=== PATIENT | female | born 1995 | race Hispanic/Latino ===

== ENCOUNTER 2017-10-05 15:33 | Inpatient (IN) | payer SELFPAY ==
[2017-10-05] MEDS ORDERED: ACT CHARCOAL/SORB 50 GM/240ML ONE (15:55)
[2017-10-05] MEDS ORDERED: NA CHLORIDE 0.9% 1,000 ML ONE ×3 (15:55→17:07)
[2017-10-05 16:17] LABS: Absolute Lymphocytes (CBC) 3.1 K/uL (0.7-4.9); Absolute Monocytes 0.6 K/uL (0.1-1.3); Absolute Neutrophil 4.4 K/uL (1.8-8.0); Basophils % 0.4 % (0-1.3); Eosinophils % 0.9 % (0-4.4); Hematocrit 44.2 % (36.0-45.0); Lymphocytes % 37.5 % (15.3-44.8); MCH 30.1 pg (27.0-35.0); MCV 87.9 fL (80-100); Monocytes % 6.8 % (3.3-12.3); RBC Red Blood Cell Count 5.03 M/uL (3.86-4.86)
[2017-10-05] MEDS ORDERED: LORazepam 2 MG/ML VIAL ONE ×2 (16:19→18:24)
[2017-10-05] MEDS ORDERED: RSI MEDICATION KIT IV ONE (16:21)
[2017-10-05] MEDS ORDERED: PROPOFOL 1,000 MG/100 ML VIAL IV ONE (16:23)
[2017-10-05 16:24] LABS: Protime INR 1.17
[2017-10-05] MEDS ORDERED: ACTIVATED CHARCOAL 25 GM/120 ML TUBE ONE (16:37)
[2017-10-05] MEDS ORDERED: D5 0.45 NS 0 ML IV ONE (16:45)
[2017-10-05] MEDS ORDERED: D5 0.9 NS 1,000 ML IV ONE (16:46)
[2017-10-05] MEDS ORDERED: Magnesium Sulfate 2gm IVPB 2 G/50 ML BAG IV ONE (16:50)
--- NOTE | 2017-10-05 16:54 | RAD REPORT ---
EXAM DESCRIPTION: RAD - Chest Single View - 10/05/2017 4:47 pm CLINICAL HISTORY: Tube placement Chest pain. COMPARISON: No comparisons FINDINGS: Portable technique limits examination quality. Tip of the ET tube is in the right mainstem bronchus. Repositioning is advised. Complete atelectasis of the left lung is seen. Cardiac size is not well assessed. Enteric tube descends into stomach. IMPRESSION: Right mainstem intubation.
[2017-10-05 17:06] LABS: ALT/SGPT 18 U/L (12-78); AST/SGOT 12 U/L (15-37); Albumin 4.6 g/dL (3.4-5.0); Alkaline Phosphatase 70 U/L (45-117); BUN Blood Urea Nitrogen 10 mg/dL (7-18); Bicarbonate 27 mmol/L (21-32); Bilirubin Direct 0.2 mg/dL (0-0.2); Bilirubin Total 0.4 mg/dL (0.2-1.0); Glucose Level 79 mg/dL (74-106); Potassium 3.7 mmol/L (3.5-5.1); Protein, Total 8.6 g/dL (6.4-8.2); Sodium Level 141 mmol/L (136-145)
[2017-10-05 17:10] LABS: Alcohol Serum/Plasma < 3 mg/dL (<3)
[2017-10-05 17:20] LABS: Blood Gas Oxyhemoglobin 94.9 % (94-97); Blood O2 Saturation 95.9 % (92-98.5)
[2017-10-05] MEDS ORDERED: ONDANSETRON 4 MG/2 ML VIAL IV PRN (17:42)
[2017-10-05] MEDS ORDERED: SODIUM CHLORIDE 0.9% 10ML INJ IV PRN (17:42)
[2017-10-05] MEDS ORDERED: ACETAMINOPHEN 650MG/RECT SUPP PR PRN (17:42)
[2017-10-05] MEDS ORDERED: LORazepam 2 MG/ML VIAL IV PRN (17:42)
--- NOTE | 2017-10-05 17:52 | RAD REPORT ---
EXAM DESCRIPTION: RAD - Chest Single View - 10/05/2017 4:59 pm CLINICAL HISTORY: INTUBATION TUBE CHANGE Chest pain. COMPARISON: Chest Single View dated 10/05/2017 FINDINGS: Portable technique limits examination quality. Tip of the endotracheal tube is at the level of the carlin. Ill-defined opacities in the left lung ba se may be residual atelectasis or infiltrate/ pneumonia. Enteric tube is in the stomach.
[2017-10-05] MEDS ORDERED: D5.45NS W/KCL 20MEQ 1,000 ML IV SCH (18:00)
--- NOTE | 2017-10-05 18:05 | EDPHYS ---
Physician Documentation [facility] Name: Katie Majano Age: 22 yrs Sex: Female : 1995 Arrival Date: 10/05/2017 Time: 15:34 Bed 3 Private MD: ED Physician Trae Richard HPI: 10/05 15:52 This 22 yrs old Female presents to ER via Unassigned with complaints of cp Overdose. 15:52 The patient presents to the emergency department after a known overdose, that was cp intentional. 15:52 Context: Method: the patient has a confirmed or suspected ingestion, benadryl, Time: 1 cp hour(s) ago, Extent: severe ingestion, the strength of the pills/capsules is 25 mg(s), 6 full bottles with estimated 60 in each bottle. Historical: - Allergies: 15:53 No Known Allergies; sv - Home Meds: 15:53 glycopyrrolate oral oral [Active]; sv - PMHx: 15:53 hyperhydrosis; psychosis; sv 18:59 Bipolar disorder; suicide attempt; aa1 - PSHx: 15:53 nose; ectopic ; sv - Immunization history:: Adult Immunizations up to date. - Social history:: Smoking status: Patient/guardian denies using tobacco. - Ebola Screening: : No symptoms or risks identified at this time. ROS: 15:55 Constitutional: Negative for body aches, chills, fever, poor PO intake. cp 15:55 Eyes: Negative for injury, pain, redness, and discharge. cp 15:55 Cardiovascular: Negative for chest pain. 15:55 Respiratory: Negative for cough, shortness of breath, wheezing. 15:55 Abdomen/GI: Negative for abdominal pain, nausea, vomiting, and diarrhea. 15:55 Neuro: Negative for altered mental status, headache, loss of consciousness, syncope, near syncope, weakness. 15:55 Psych: Positive for depression, suicide gesture. Exam: 15:59 Constitutional: The patient appears in no acute distress, alert, awake, non-toxic, well cp developed, well nourished. 15:59 Head/Face: Normocephalic, atraumatic. cp 15:59 Eyes: Periorbital structures: appear normal, Pupils: equal, round, and reactive to light and accomodation, Extraocular movements: intact throughout, Conjunctiva: normal, Sclera: no appreciated abnormality, Lids and lashes: appear normal, bilaterally. 15:59 ENT: External ear(s): are unremarkable, Ear canal(s): are normal, clear, TM's: bulging, is not appreciated, bilaterally, dullness, bilaterally, erythema, is not appreciated, bilaterally, Nose: is normal, Mouth: Lips: moist, Oral mucosa: moist, Posterior pharynx: is normal, airway is patent, no erythema, no exudate. 15:59 Neck: ROM/movement: is normal, is supple, without pain, no range of motions limitations, no nuchal rigidity. 15:59 Chest/axilla: Inspection: normal, Palpation: is normal, no crepitus, no tenderness. 15:59 Cardiovascular: Rate: tachycardic, Rhythm: regular, Pulses: Pulses are 2+ in right radial artery and left radial artery. Edema: is not appreciated, JVD: is not appreciated. 15:59 Respiratory: the patient does not display signs of respiratory distress, Respirations: labored breathing, is not present, accessory muscle usage, is absent, intercostal retractions, are absent, shallow respirations, are not present, Breath sounds: are clear throughout, no decreased breath sounds, no stridor, no wheezing. 15:59 Abdomen/GI: Inspection: abdomen appears normal, Palpation: abdomen is soft and non-tender, in all quadrants, rebound tenderness, is not appreciated, voluntary guarding, is not appreciated, involuntary guarding, is not appreciated. 15:59 Back: pain, is absent, ROM is normal. 15:59 Skin: Appearance: Color: pale, Temperature: warm, dry, no rash present. 15:59 Neuro: Orientation: to person, place \T\ time. Mentation: lucid, able to follow commands, Cerebellar function: is grossly normal, Motor: moves all fours, strength is normal, Sensation: no obvious gross deficits. 15:59 Psych: Behavior/mood is depressed, Affect is flat. Vital Signs: 15:35 BP 121 / 86; Pulse 104; Resp 18; Temp 99; Pulse Ox 99% ; Height 5 ft. 4 in. (162.56 sv cm); Pain 2/10; 16:08 BP 139 / 93; Pulse 159; Resp 22; Pulse Ox 100% on R/A; Weight 47.63 kg; ss 16:10 BP 139 / 93; Pulse 158; Resp 28; Pulse Ox 78% on R/A; ch 16:28 BP 122 / 84; Pulse 156; Resp 18 A; Pulse Ox 98% on ETT ambu; ch 16:35 BP 112 / 82; Pulse 138; ch 16:40 BP 112 / 81; Pulse 205; ch 16:48 BP 125 / 87; Pulse 136; Resp 14 A; Pulse Ox 98% on ETT vent; ch 17:00 BP 118 / 72; Pulse 130; Resp 14; Pulse Ox 98% on ETT vent; ch 17:15 BP 101 / 65; Pulse 117; Resp 14; Pulse Ox 100% ; ch 17:33 BP 122 / 87; Pulse 128; Resp 16; Temp 97.4; Pulse Ox 100% on R/A; Pain 0/10; ch 18:01 BP 110 / 79; Pulse 118; Resp 15; Temp 97.6; Pulse Ox 100% on ETT vent; Pain 0/10; ch 18:34 BP 98 / 62; Pulse 115; Resp 16; Pulse Ox 100% on ETT vent; aa1 18:52 BP 97 / 65; Pulse 108; Resp 16; Temp 97.1(A); Pulse Ox 100% on ETT vent; aa1 19:11 BP 99 / 67; Pulse 102; Resp 16; Pulse Ox 100% on ETT vent; aa1 19:25 BP 100 / 66; Pulse 100; Resp 14; Pulse Ox 100% on ETT vent; aa1 19:45 BP 105 / 77; Pulse 101; Resp 16; Pulse Ox 100% on ETT vent; aa1 16:08 Body Mass Index 18.02 (47.63 kg, 162.56 cm) ss 16:10 pt seizing. then toi page uses BVM to raise O\T\ to 98% ch 16:40 toi page at bedside, new orders obtained. ch 17:15 pt complexes are very wide V tach. medicated per orders. Procedures: 16:26 Intubation: Ventilated with 100% NRB prior to procedure. O2 saturation prior to cp procedure was 100 %. Intubated orally using # 3 Fito blade with 7.5 mm ETT. was successful on first attempt. Ventilated with Ambu bag. Tube secured with ETT stephens at right side of mouth measured 23 cm at teeth. Placement verified by CO2 detector with (+) color change, auscultating bilateral breath sounds, O2 saturation after procedure was 100 %. Patient tolerated well. MDM: 15:56 Patient medically screened. cp 17:05 Physician consultation: DR Harvey, ruling machine operator with poison control, recommends cp continued monitoring for seizures with seizure control using Versed, and/or ativan, and/or keppra. If seizures continue with these medications, use antilirium titrated for seizure control. 18:48 Data reviewed: vital signs, nurses notes, lab test result(s), EKG, radiologic studies, cp plain films. Test interpretation: by ED physician or midlevel provider: ECG, plain radiologic studies. 10/05 15:51 Order name: Acetaminophen; Complete Time: 17:24 cp 10/05 15:51 Order name: Basic Metabolic Panel; Complete Time: 17:24 cp 10/05 17:24 Interpretation: Normal except: GFR 77. cp 10/05 15:51 Order name: CBC with Diff; Complete Time: 16:32 cp 10/05 16:32 Interpretation: Normal except: RBC 5.03; HGB 15.1. cp 10/05 15:51 Order name: ETOH Level; Complete Time: 17:24 cp 10/05 15:51 Order name: Hepatic Function; Complete Time: 17:24 cp 10/05 15:51 Order name: PT-INR; Complete Time: 16:32 cp 10/05 15:51 Order name: Ptt, Activated; Complete Time: 16:32 cp 10/05 15:51 Order name: Salicylate; Complete Time: 16:54 cp 10/05 16:54 Interpretation: Within normal limits. cp 10/05 15:51 Order name: Urine Drug Screen; Complete Time: 19:21 cp 10/05 16:31 Order name: Troponin I; Complete Time: 16:54 cp 10/05 16:54 Interpretation: Reviewed. cp 10/05 16:34 Order name: Troponin (emerg Dept Use Only) dm5 10/05 16:43 Order name: ABG; Complete Time: 17:30 mb4 10/05 17:48 Order name: CBC with Automated Diff EDMS 10/05 17:48 Order name: CBC with Automated Diff EDMS 10/05 16:23 Order name: Chest Single View XRAY; Complete Time: 16:56 la1 10/05 16:56 Order name: Chest Single View; Complete Time: 19:21 EDNJ 10/05 17:47 Order name: Chest Single View; Complete Time: 19:21 EDNJ 10/05 17:48 Order name: Comprehensive Metabolic Panel [facility] 10/05 17:48 Order name: Comprehensive Metabolic Panel [facility] 10/05 17:48 Order name: ABG Arterial Blood Gas [facility] 10/05 18:36 Order name: Urine Dipstick--Ancillary (enter results); Complete Time: 19:21 mb4 10/05 18:36 Order name: Urine --Ancillary (enter results); Complete Time: 19:20 mb4 10/05 15:51 Order name: Urine Test (obtain specimen); Complete Time: 18:32 cp 10/05 15:51 Order name: EKG; Complete Time: 15:52 cp 10/05 15:51 Order name: EKG - Nurse/Tech; Complete Time: 16:07 cp 10/05 15:51 Order name: IV Saline Lock; Complete Time: 16:07 cp 10/05 15:51 Order name: Labs collected and sent; Complete Time: 16:07 cp 10/05 15:51 Order name: Urine Dipstick-Ancillary (obtain specimen); Complete Time: 18:32 cp 10/05 16:08 Order name: IV; Complete Time: 16:09 cp 10/05 16:08 Order name: IV; Complete Time: 16:08 cp 10/05 16:08 Order name: Holloway; Complete Time: 17:41 cp 10/05 17:31 Order name: EKG Electrocardiogram [facility] 10/05 17:31 Order name: EKG Electrocardiogram [facility] 10/05 17:48 Order name: CONS Physician Consult [facility] 10/05 17:48 Order name: NPO [facility] Administered Medications: Discontinued: NS 0.9% 500 ml IV at bolus once 16:04 Drug: NS 0.9% 1000 ml Route: IV; Rate: 1 bolus; Site: right forearm; ss 16:09 Drug: Activated Charcoal Suspension (50 g/240 mL) 1 g/kg Route: PO; ss 16:09 Drug: NS 0.9% 500 ml Route: IV; Rate: bolus; Site: left antecubital; ss 16:12 Drug: Ativan 2 mg Route: IVP; Site: left antecubital; ch 18:32 Follow up: Response: No adverse reaction ch 16:18 Drug: Etomidate 20 mg Route: IVP; Site: left antecubital; ch 18:31 Follow up: Response: No adverse reaction; Marked relief of symptoms ch 16:19 Drug: Succinylcholine 120 mg Route: IVP; Site: left antecubital; ch 18:31 Follow up: Response: No adverse reaction ch 16:33 Drug: Charcoal Suspension 100 grams Route: PO; ch 18:46 Follow up: Response: No adverse reaction; No change in condition aa1 16:36 Drug: Sodium Bicarbonate 1 amp Route: IVP; Site: left antecubital; ch 16:40 Drug: Sodium Bicarbonate 1 amp Route: IVP; Site: right forearm; ch 18:31 Follow up: Response: No adverse reaction ch 16:43 Drug: D5 -1/4 NS 1000 ml Route: IV; Rate: 70 ml/hr; Site: right wrist; ch 18:47 Follow up: IV Status: Infusion continued upon admission aa1 16:47 Drug: Magnesium Sulfate 2 grams Route: IVPB; Site: right forearm; ch 18:46 Follow up: IV Status: Completed infusion aa1 17:00 Drug: NS 0.9% 1000 ml Route: IV; Rate: 1 bolus; Site: left antecubital; ch 17:25 Follow up: IV Status: Order to discontinue infusion; IV Intake: 600ml ch 17:14 Drug: Sodium Bicarbonate 1 amp Route: IVP; Site: right forearm; ch 18:31 Follow up: Response: No adverse reaction ch 17:17 Drug: Sodium Bicarbonate 1 amp Route: IVP; Site: right forearm; ch 18:32 Follow up: Response: No adverse reaction ch 18:21 Drug: Ativan 2 mg Route: IVP; Site: left antecubital; ch 18:33 Follow up: Response: No adverse reaction; Marked relief of symptoms ch 18:43 Drug: Keppra 1000 mg Route: IV; Rate: calculated rate; Site: left antecubital; aa1 19:00 Follow up: IV Status: Completed infusion aa1 Point of Care Testing: Blood Glucose: 16:41 Blood Glucose: 136 mg/dL; em1 Ranges: Critical Glucose Levels:Adult <50 mg/dl or >400 mg/dl <40 mg/dl or >180 mg/dl Disposition: 10/06 08:33 Co-signature as Attending Physician, Trae Richard MD I agree with the assessment and wa plan of care. Disposition: 10/05/17 18:04 Hospitalization ordered by Clinton Tatum for Inpatient Admission. Preliminary diagnosis are Poisoning by other drugs, medicaments and biological substances, intentional self-harm, Diphenhydramine overdose. - Bed requested for Intensive Care Unit. - Status is Inpatient Admission. aa1 - Condition is Stable. - Problem is new. - Symptoms have improved. UTI on Admission? No Critical care time excluding procedures: 10/05 18:49 Critical care time: Bedside Care: 60 minutes, Consultation: 30 minutes, Family cp Intervention: 20 minutes. Total time: 110 minutes Signatures: Dispatcher [employer] EDGeorgie Razo, RN RN Winifred Leija RN Sherley Pena RN RN aa1 Liliya Gillis RN RN ss Toi Kumar, PA PA Trae Mccormack MD MD wa Baxter, Mackenzie mb4 Corrections: (The following items were deleted from the chart) 18:51 18:04 Hospitalization Ordered by Clinton Tatum MD for Inpatient Admission. Preliminary mb4 diagnosis is Poisoning by other drugs, medicaments and biological substances, intentional self-harm; Diphenhydramine overdose. Bed requested for Intensive Care Unit. Status is Inpatient Admission. Condition is Stable. Problem is new. Symptoms have improved. UTI on Admission? No. cp 20:01 18:51 10/05/2017 18:04 Hospitalization Ordered by Clinton Tatum MD for Inpatient aa1 Admission. Preliminary diagnosis is Poisoning by other drugs, medicaments and biological substances, intentional self-harm; Diphenhydramine overdose. Bed requested for Intensive Care Unit. Status is Inpatient Admission. Condition is Stable. Problem is new. Symptoms have improved. UTI on Admission? No. mb4
--- NOTE | 2017-10-05 18:05 | ER ---
Nurse's Notes [facility] Name: Katie Majano Age: 22 yrs Sex: Female : 1995 Arrival Date: 10/05/2017 Time: 15:34 Bed 3 Private MD: Diagnosis: Poisoning by other drugs, medicaments and biological substances, intentional self-harm;Diphenhydramine overdose Presentation: 10/05 15:35 Presenting complaint: Patient states: taking 6 full bottles of Benadryl, quantity in sv each is 60, about 40 mins ago. Pt told her grandmother and she brought her up here. Pt stated "I wanted to sleep. I felt tired." Pt denies depression or previous suicidal attempt. Pt denies being abused. Transition of care: patient was not received from another setting of care. Onset of symptoms was October 05, 2017 at 15:00. Risk Assessment: Do you want to hurt yourself or someone else? Patient reports no desire to harm self or others. Care prior to arrival: None. 15:35 Method Of Arrival: Wheelchair sv 15:35 Acuity: YADIRA 2 sv 17:15 Acuity: YADIRA 1 ph Historical: - Allergies: 15:53 No Known Allergies; sv - Home Meds: 15:53 glycopyrrolate oral oral [Active]; sv - PMHx: 15:53 hyperhydrosis; psychosis; sv 18:59 Bipolar disorder; suicide attempt; aa1 - PSHx: 15:53 nose; ectopic ; sv - Immunization history:: Adult Immunizations up to date. - Social history:: Smoking status: Patient/guardian denies using tobacco. - Ebola Screening: : No symptoms or risks identified at this time. Screenin:13 Abuse screen: Denies threats or abuse. Nutritional screening: No deficits noted. Tuberculosis screening: No symptoms or risk factors identified. Fall Risk None identified. Assessment: 15:47 Reassessment: spoke with poison control rep who recommends to obtain full tox work up, ss then repeat labs after 4 hours of ingestion , continuous cardiac monitoring, initiate seizure precautions, administer 1mg/kg of activated charcoal now. Watch for hallucinations and give supportive care as needed. Case # [id number]. 16:10 Reassessment: pt loses conscousness, begins seizing. Toi page at bedside. 16:10 Pain: Unable to use pain scale. Patient is disoriented. 16:13 Reassessment: pt Stoped Seizing, prepared for intubation.pt; O2 is 78%. Pt bein bagged. 16:47 Reassessment: cardiac rhythm noted to have changed, Dr Richard notified and at bedside. ph 16:52 Reassessment: X ray shows pt L lung collapsed. tube pulled back to 21 at the teeth at 1652, repeat x ray ordered. 16:57 Reassessment: Reassessment: pt has eduardo breath sounds, equally. slightly diminshed on LLL, but breath sounds eduardo. 17:15 Reassessment: pthas wide com-plex V Tach. Toi page at bedside, medicated per orders. 17:33 Reassessment: Patient appears in no apparent distress at this time. pt still has no ch Urine output, Joes Manuel performs US on bladder, states to change andersen to a larger andersen. andersen replaced, pt has 1400 ML out. NS bolus stopped per orders, pt had 600 mL of bolus. 17:37 Reassessment: repeat x ray performed, Toi page states to move ET tube out one CM.ET ch tube is at 22 at the teeth when RT checks, moved back to 21 at teeth. 17:45 Reassessment: pt stillhaving wide complex tachycardia. physician and toi page ch notified, no new orders. 17:54 Reassessment:. 17:55 Reassessment:. 17:56 Reassessment: at bedside to assess pt. 18:00 Reassessment: I am at bedside, one on one with pt from 1550 till now,and remain at bedside monitoring. 18:12 Reassessment: family at bedside, states they want to put the pt service animal on top ch of her .I tell them no, due to pt status. 18:33 Reassessment: Patient appears in no apparent distress at this time. Patient and/or family updated on plan of care and expected duration. Pain level reassessed. Toi kumar speaks eith family about pt status. family states pt has prior suicide attemps, and hx of bipolar. 18:35 Neuro: Level of Consciousness is unresponsive. Cardiovascular: Heart tones S1 S2 aa1 present. Respiratory: Airway via oral intubation Respiratory effort is assisted with ventilator Respiratory pattern is symmetrical. GI: Oral gastric tube in place, to suction. : Andersen in place to gravity drainage Urine is clear. Derm: Skin is intact, is healthy with good turgor, Skin is pink, warm \\T\\ dry. Musculoskeletal: Capillary refill < 3 seconds. 18:52 Reassessment: Patient appears in no apparent distress at this time. No changes from aa1 previously documented assessment. Patient and/or family updated on plan of care and expected duration. Pain level reassessed. Mother at bedside with pt. Bed assignment received and pt to be admitted to ICU after shift change. 19:15 Reassessment: Patient appears in no apparent distress at this time. No changes from aa1 previously documented assessment. Patient and/or family updated on plan of care and expected duration. Pain level reassessed. ICU states they are ready to receive pt; awaiting RT for transport upstairs. Vital Signs: 15:35 BP 121 / 86; Pulse 104; Resp 18; Temp 99; Pulse Ox 99% ; Height 5 ft. 4 in. (162.56 sv cm); Pain 2/10; 16:08 BP 139 / 93; Pulse 159; Resp 22; Pulse Ox 100% on R/A; Weight 47.63 kg; ss 16:10 BP 139 / 93; Pulse 158; Resp 28; Pulse Ox 78% on R/A; ch 16:28 BP 122 / 84; Pulse 156; Resp 18 A; Pulse Ox 98% on ETT ambu; ch 16:35 BP 112 / 82; Pulse 138; ch 16:40 BP 112 / 81; Pulse 205; ch 16:48 BP 125 / 87; Pulse 136; Resp 14 A; Pulse Ox 98% on ETT vent; ch 17:00 BP 118 / 72; Pulse 130; Resp 14; Pulse Ox 98% on ETT vent; ch 17:15 BP 101 / 65; Pulse 117; Resp 14; Pulse Ox 100% ; ch 17:33 BP 122 / 87; Pulse 128; Resp 16; Temp 97.4; Pulse Ox 100% on R/A; Pain 0/10; ch 18:01 BP 110 / 79; Pulse 118; Resp 15; Temp 97.6; Pulse Ox 100% on ETT vent; Pain 0/10; ch 18:34 BP 98 / 62; Pulse 115; Resp 16; Pulse Ox 100% on ETT vent; aa1 18:52 BP 97 / 65; Pulse 108; Resp 16; Temp 97.1(A); Pulse Ox 100% on ETT vent; aa1 19:11 BP 99 / 67; Pulse 102; Resp 16; Pulse Ox 100% on ETT vent; aa1 19:25 BP 100 / 66; Pulse 100; Resp 14; Pulse Ox 100% on ETT vent; aa1 19:45 BP 105 / 77; Pulse 101; Resp 16; Pulse Ox 100% on ETT vent; aa1 16:08 Body Mass Index 18.02 (47.63 kg, 162.56 cm) ss 16:10 pt seizing. then toi kumar uses BVM to raise O\\T\\ to 98% ch 16:40 toi kumar at bedside, new orders obtained. ch 17:15 pt complexes are very wide V tach. medicated per orders. ch Vitals: 16:35 Cardiac Rhythm Assessment V tach. ch ED Course: 15:34 Patient arrived in ED. as 15:35 Arm band placed on right wrist. Patient placed in an exam room, on a stretcher. sv 15:50 Toi Kumar PA is PHCP. cp 15:50 Trae Richard MD is Attending Physician. cp 15:50 Patient has correct armband on for positive identification. Placed in gown. Bed in low ch position. Call light in reach. Side rails up X2. Adult w/ patient. court monitor on. Pulse ox on. NIBP on. Warm blanket given. 15:50 Inserted saline lock: 20 gauge in left antecubital area, using aseptic technique. ch 15:52 Triage completed. sv 16:07 Inserted saline lock: 20 gauge in right forearm, using aseptic technique. ss 16:10 EKG done, by entry tech. reviewed by Toi LOVE. 3 16:20 Assisted provider with intubation using 7.5 mm ETT via oral route. ET tube secured at ch 23cm at the teeth. Set up intubation tray. Intubated by Trae Richard MD Placement verified by CO2 detector w/ + color change, Patient tolerated well. 16:23 NGT: inserted other Orally verified placement of air over stomach, verified return of ch gastric contents, to intermittent suction. flushed 600 Ml waterper orders. pt placed on Low Intermittant Suction Patient tolerated well. 16:38 EKG done, by entry tech. reviewed by Trae Richard MD. sm3 16:44 Chest Single View XRAY In Process Unspecified. EDMS 16:44 X-ray completed. Portable x-ray completed in exam room. Patient tolerated procedure mh1 well. 16:45 Andersen cath inserted, using sterile technique, 18 Fr., by mo, balloon inflated, to ph gravity drainage, returned no urine returned. 16:54 Inserted saline lock: 20 gauge in right antecubital area, using aseptic technique. ss Blood collected. 16:58 Chest Single View In Process Unspecified. EDMS 17:02 Georgie Mittal, RN is Primary Nurse. ch 17:17 EKG done, by entry tech. reviewed by Trae Richard MD. sm3 17:52 Chest Single View In Process Unspecified. EDMS 18:02 Clinton Tatum MD is Hospitalizing Provider. cp 18:35 Report given to Sherley Hopper ch 19:45 Patient admitted, IV remains in place. aa1 Administered Medications: Discontinued: NS 0.9% 500 ml IV at bolus once 16:04 Drug: NS 0.9% 1000 ml Route: IV; Rate: 1 bolus; Site: right forearm; ss 16:09 Drug: Activated Charcoal Suspension (50 g/240 mL) 1 g/kg Route: PO; ss 16:09 Drug: NS 0.9% 500 ml Route: IV; Rate: bolus; Site: left antecubital; ss 16:12 Drug: Ativan 2 mg Route: IVP; Site: left antecubital; ch 18:32 Follow up: Response: No adverse reaction ch 16:18 Drug: Etomidate 20 mg Route: IVP; Site: left antecubital; ch 18:31 Follow up: Response: No adverse reaction; Marked relief of symptoms ch 16:19 Drug: Succinylcholine 120 mg Route: IVP; Site: left antecubital; ch 18:31 Follow up: Response: No adverse reaction ch 16:33 Drug: Charcoal Suspension 100 grams Route: PO; ch 18:46 Follow up: Response: No adverse reaction; No change in condition aa1 16:36 Drug: Sodium Bicarbonate 1 amp Route: IVP; Site: left antecubital; ch 16:40 Drug: Sodium Bicarbonate 1 amp Route: IVP; Site: right forearm; ch 18:31 Follow up: Response: No adverse reaction ch 16:43 Drug: D5 -1/4 NS 1000 ml Route: IV; Rate: 70 ml/hr; Site: right wrist; ch 18:47 Follow up: IV Status: Infusion continued upon admission aa1 16:47 Drug: Magnesium Sulfate 2 grams Route: IVPB; Site: right forearm; ch 18:46 Follow up: IV Status: Completed infusion aa1 17:00 Drug: NS 0.9% 1000 ml Route: IV; Rate: 1 bolus; Site: left antecubital; ch 17:25 Follow up: IV Status: Order to discontinue infusion; IV Intake: 600ml ch 17:14 Drug: Sodium Bicarbonate 1 amp Route: IVP; Site: right forearm; ch 18:31 Follow up: Response: No adverse reaction ch 17:17 Drug: Sodium Bicarbonate 1 amp Route: IVP; Site: right forearm; ch 18:32 Follow up: Response: No adverse reaction ch 18:21 Drug: Ativan 2 mg Route: IVP; Site: left antecubital; ch 18:33 Follow up: Response: No adverse reaction; Marked relief of symptoms ch 18:43 Drug: Keppra 1000 mg Route: IV; Rate: calculated rate; Site: left antecubital; aa1 19:00 Follow up: IV Status: Completed infusion aa1 Point of Care Testing: Blood Glucose: 16:41 Blood Glucose: 136 mg/dL; em1 Ranges: Intake: 17:25 IV: 600ml; Total: 600ml. ch Outcome: 18:04 Decision to Hospitalize by Provider. cp 19:45 Admitted to ICU accompanied by nurse, accompanied by tech, family with patient, via aa1 stretcher, room 3, with oxygen, on monitor, with chart, Other bedside report given to BARRY Colón 19:45 Condition: stable 19:45 Discharge instructions given to family, Instructed on the need for admit, Demonstrated understanding of instructions. 19:45 Patient left the ED. aa1 Signatures: Dispatcher [employer] EDGeorgie Razo RN RN Winifred Leija RN RN sv Kern, Alissa, RN RN aa1 Lori Longo [facility] Brianne Zendejas Eric em1 Liliya Gillis RN RN Latia Medina RN RN ph Toi Kumar PA PA cp Montes, Shakira sm3 Corrections: (The following items were deleted from the chart) 18:07 16:41 BP 125 / 87; Pulse 136bpm; Resp 14bpm; Assisted; Pulse Ox 98% ET / Ventilator; em1ch 18:35 17:10 Reassessment: [facility] 18:55 18:52 Pulse 108bpm; Resp 16bpm; Pulse Ox 100% ET / Ventilator; Temp 97.1F Axillary; aa1 aa1 20:03 20:01 Patient left the ED. aa1 aa1
--- NOTE | 2017-10-05 18:14 | RAD REPORT ---
EXAM DESCRIPTION: RAD - Chest Single View - 10/05/2017 5:51 pm CLINICAL HISTORY: TUBE ADJUSTMENT Chest pain. COMPARISON: Chest Single View dated 10/05/2017; Chest Single View dated 10/05/2017 FINDINGS: Portable technique limits examination quality. The ET tube tip is about 1-2 cm above the carlin. Left basilar lung opacities are again noted, unchan ged. Enteric tube is in in the left upper quadrant, presumably within the stomach.
[2017-10-05] MEDS ORDERED: levETIRAcetam 1,000 MG in NA CHLORIDE 0.9% 100 ML IV ONE (18:30)
[2017-10-05] MEDS ORDERED: SUCCINYLCHOLINE 20 MG/ML (10 ML) IV ONE (18:46)
[2017-10-05] MEDS ORDERED: ETOMIDATE 20 MG/10 ML VIAL IV ONE (18:46)
[2017-10-05 18:47] LABS: Barbiturates NEGATIVE (NEGATIVE); Benzodiazepines NEGATIVE (NEGATIVE); Cocaine NEGATIVE (NEGATIVE); METHAMPHETAM NEGATIVE (NEGATIVE); Methadone NEGATIVE (NEGATIVE); Opiates NEGATIVE (NEGATIVE); Phencyclidine NEGATIVE (NEGATIVE); THC Cannibis NEGATIVE (NEGATIVE)
[2017-10-05 19:03] LABS: Urine Blood TRACE (NEG); Urine Glucose NEGATIVE (NEG); Urine Protein NEGATIVE (NEG); Urine pH 8.5 (5.0-7.0)
[2017-10-05 20:10] LABS: Arterial Blood Carboxyhemoglob 0.8 % (0-1.5); Blood Gas Oxyhemoglobin 98.2 % (94-97); Blood O2 Saturation 99.8 % (92-98.5)
[2017-10-05] MEDS: D5W 1,000 ML with NA BICARB 8.4% 100 MEQ IV SCH ×2 (20:23)
[2017-10-05] MEDS: ENOXAPARIN 40 MG/0.4 ML SQ SCH (21:34)
[2017-10-05] MEDS: PANTOPRAZOLE 40 MG INJ IVP SCH (21:34)
[2017-10-05] MEDS: PROPOFOL 1,000 MG/100 ML VIAL IV PRN (22:29)
--- NOTE | 2017-10-06 02:54 | HP ---
Date of Admission: 10/05/2017 Chief Complaint: Benadryl overdose. History Of Present Illness: The patient is a 22-year-old female who comes in with drowsiness, agitat ion, and hallucinations. The patient ingested approximately 360 pills of Benadryl 25 mg each. The p atbenito told the nurse that she was just trying to go to sleep; however, the story from the grandmothe r is that her has recently lost his job and has had some recent social stressors. The patien ryan was brought into the ER for further evaluation. Upon arrival, she was drowsy, somnolent, had a wit ness seizure, became hypoxic, was intubated. So far, the patient has received sodium bicarbonate alice us x2, activated charcoal, Ativan 2 mg, and was sedated with propofol and also received etomidate dur ing the intubation. The patient has received 3 L of normal saline, 2 g of magnesium as well as potas sium. The patient's workup showed normal electrolytes. Poison control was contacted and recommended to monitor the patient with cardiac telemetry and watch for seizures. The patient's ABG did show ac idosis, pH of 7.2, pCO2 of 50. When seen in the ER, the patient was intubated, sedated, nonresponsiv e. Past Medical History: None. Past Surgical History: Had a ruptured ectopic in 2012. Allergies: NO KNOWN DRUG ALLERGIES. Medications: List reviewed. Review of Systems: Unable to obtain due to the patient's medical condition. Family History: Unknown. Social History: Unable to obtain due to the patient's medical condition. Physical Examination: Vital Signs: Blood pressure 121/86, pulse 104, respirations 18, temperature 99, O2 99% on ET tube. General: Intubated, sedated, nonresponsive. HEENT: Normocephalic, atraumatic. PERRLA. ET tube in place. Neck: Supple. No JVD. Trachea midline. CV: S1, S2. Sinus tachycardia. No murmurs. Peripheral pulses present. Respiratory: Mechanical breath sounds. No wheezing or stridor. Gastrointestinal: Abdomen is soft, nontender, nondistended. Positive bowel sounds. Hypoactive. No hepatomegaly. Extremities: No clubbing, cyanosis, or edema. Neuro: Unable to properly assess due to the patient's medical condition. The patient is intubated a nd sedated. Skin: No rashes. Normal skin turgor. Laboratory Data: PH 7.2, pCO2 50.6, pO2 105, bicarb 19. UDS negative for salicylates and acetaminop hen, Remainders pending. Sodium 141, potassium 3.7, chloride 107, CO2 27, BUN 10, creatinine 0.9, gl ucose 79, calcium 9.6, AST 12, ALT 18. Troponin less than 0.02. Albumin 4.6. Drug bilirubin 0.4. INR 1.17. WBC 8.2, H and H 15.1/44.2, platelets 240. UA pending. Chest x-ray, ET tube in the right mainstem bronchus. This x-ray was before repositioning, anterior tube descends into the stomach. Assessment: A 22-year-old female with: 1.Acute respiratory failure, now intubated on mechanical ventilation. Pulmonology has been consulte d. 2.Benadryl overdose, 360 pills 25 mg each. The patient is having some arrhythmias as well as a seiz ure. We will place on Ativan p.r.n. We will continue on sodium bicarb drip. Continue to monitor wi th cardiac telemetry, seizure precautions, and suicide precautions. 3.Intentional overdose, suicide precautions. Will need [facility] evaluation once medically stable. 4.Metabolic acidosis. Continue with bicarb secondary to above. Plan: Admit the patient to ICU, place as inpatient. The patient will be here for greater than 2 mid nights. We will watch heart rhythm closely as she does have a widened QRS and seizure precautions. The patient has been loaded with Keppra, avoid phenytoin and fosphenytoin as this may exacerbate the patient's condition due to further sodium channel blockade. /BRANDIN Voice ID: [id number]
[2017-10-06] MEDS: D5W 1,000 ML with NA BICARB 8.4% 100 MEQ IV SCH ×6 (04:24→21:31)
[2017-10-06 05:10] LABS: Absolute Lymphocytes (CBC) 0.8 K/uL (0.7-4.9); Absolute Monocytes 0.6 K/uL (0.1-1.3); Absolute Neutrophil 11.3 K/uL (1.8-8.0); Basophils % 0.1 % (0-1.3); Hematocrit 36.2 % (36.0-45.0); Lymphocytes % 6.3 % (15.3-44.8); MCH 30.9 pg (27.0-35.0); MCV 87.3 fL (80-100); MPV 8.6 fL (7.6-11.3); Monocytes % 4.7 % (3.3-12.3); RBC Red Blood Cell Count 4.15 M/uL (3.86-4.86)
[2017-10-06 05:31] LABS: ALT/SGPT 13 U/L (12-78); AST/SGOT 15 U/L (15-37); Albumin 4.3 g/dL (3.4-5.0); Alkaline Phosphatase 59 U/L (45-117); BUN Blood Urea Nitrogen 8 mg/dL (7-18); Bicarbonate 25 mmol/L (21-32); Bilirubin Total 0.3 mg/dL (0.2-1.0); Glucose Level 135 mg/dL (74-106); Potassium 3.1 mmol/L (3.5-5.1); Protein, Total 6.9 g/dL (6.4-8.2); Sodium Level 143 mmol/L (136-145)
[2017-10-06 05:36] LABS: Blood Morphology Comment NOT SEEN (NOT SEEN); Platelet Estimate ADEQ
[2017-10-06] MEDS: KCL 20 MEQ/100 mL IVPB 20 MEQ/100 ML BAG IV SCH ×4 (06:09→19:37)
[2017-10-06] MEDS: PROPOFOL 1,000 MG/100 ML VIAL IV PRN ×2 (07:35→17:11)
[2017-10-06] MEDS: ENOXAPARIN 40 MG/0.4 ML SQ SCH (08:22)
[2017-10-06] MEDS: PANTOPRAZOLE 40 MG INJ IVP SCH (08:22)
--- NOTE | 2017-10-06 08:32 | EKG ---
Test Date: 2017-10-05 Test Time: 17:02:46 Music Therapy Specialist: YANELIS MEASUREMENT RESULTS: Intervals: Rate: 135 OK: 128 QRSD: 194 QT: 344 QTc: 516 [place]: P: 62 OK: 128 QRS: 14 T: 71 INTERPRETIVE STATEMENTS: Sinus tachycardia Nonspecific intraventricular block Abnormal ECG Compared to ECG 10/05/2017 16:28:52 Left-axis deviation no longer present ST (T wave) deviation no longer present Myocardial infarct finding no longer present Electronically Signed On 10-06-17 08:31:13 CDT by Luis Stauffer
--- NOTE | 2017-10-06 08:33 | EKG ---
Test Date: 2017-10-05 Test Time: 16:28:52 Medical Doctor Md/Medical Director: YANELIS MEASUREMENT RESULTS: Intervals: Rate: 130 VT: 182 QRSD: 104 QT: 278 QTc: 409 [place]: P: 71 VT: 182 QRS: -42 T: 56 INTERPRETIVE STATEMENTS: Sinus tachycardia Possible Left atrial enlargement Left axis deviation ST abnormality non specific Abnormal ECG Compared to ECG 10/05/2017 15:49:44 Left-axis deviation now present Myocardial infarct finding now present ST (T wave) deviation still present Electronically Signed On 10-06-17 08:32:09 CDT by Luis Stauffer
--- NOTE | 2017-10-06 08:33 | EKG ---
Test Date: 2017-10-05 Test Time: 15:49:44 Senior Business Consultant: YANELIS MEASUREMENT RESULTS: Intervals: Rate: 145 ID: [id number] QRSD: 76 QT: 278 QTc: 431 [place]: P: 62 ID: [id number] QRS: 43 T: -66 INTERPRETIVE STATEMENTS: Sinus tachycardia Possible Left atrial enlargement sT abnormality, non specific Abnormal ECG No previous ECG available for comparison Electronically Signed On 10-06-17 08:32:40 CDT by Luis Stauffer
[2017-10-06] MEDS: LORazepam 2 MG/ML VIAL IV PRN ×2 (10:40→17:11)
[2017-10-06 14:13] LABS: Blood Gas Oxyhemoglobin 97.5 % (94-97); Blood O2 Saturation 99.4 % (92-98.5)
[2017-10-06 16:41] LABS: ALT/SGPT 13 U/L (12-78); AST/SGOT 15 U/L (15-37); Albumin 4.1 g/dL (3.4-5.0); Alkaline Phosphatase 59 U/L (45-117); BUN Blood Urea Nitrogen 8 mg/dL (7-18); Bicarbonate 26 mmol/L (21-32); Bilirubin Total 0.5 mg/dL (0.2-1.0); Glucose Level 127 mg/dL (74-106); Magnesium 1.9 mg/dL (1.8-2.4); Potassium 3.1 mmol/L (3.5-5.1); Protein, Total 6.6 g/dL (6.4-8.2); Sodium Level 139 mmol/L (136-145)
--- NOTE | 2017-10-06 18:33 | PN ---
Subjective: Currently, the patient is lying in bed. She is sedated and intubated. Review of Systems: Otherwise unobtainable. Objective: Vital Signs: Blood pressure 104/60, respiratory rate 16, pulse 87, temperature 98, ____ . General: She is sedated and intubated. Does not look in any distress. HEENT: Atraumatic, normocephalic. PERRLA. Oral mucosa is dry. Neck: Supple. No JVD. No carotid bruits. Chest: Clear to auscultation. Good air entry. Heart: Regular rate and rhythm. No gallop or murmur. Abdomen: Soft, nontender. No masses. No hepatosplenomegaly. Positive bowel sounds. Extremities: No clubbing, cyanosis, or edema. No calf tenderness. Neurologic: Deferred. Laboratory Data: Labs today, CBC within normal except for white blood cells 12.7, PT/INR within norm al. Chemistry within normal except for potassium 3.1. Glucose 135, calcium 7.5, LFTs within normal. Troponin negative. Blood gases, today is pending, yesterday at 8 p.m. was at 7.4, pO2 of 280, pCO2 of 30. Assessment And Plan: 1.Acute respiratory failure. She reported drug overdose with Benadryl. The patient intubated on the vent. Pulmonary consult requested and is still pending. ABG today is pending. 2.Benadryl overdose with seizure. The patient was intubated for airway protection. Currently on p. r.n. Ativan and propofol. Continue seizure precautions. 3.Intentional overdose, suicide precautions. The patient will need [facility] evaluation once medically s table. 4.Metabolic acidosis, resolved, but we will repeat ABG this afternoon. 5.Hypokalemia. We will replace IV. 6.Wide QRS complex. Repeat EKG today. MT/MODL Voice ID: [id number] Report ID: [id number]
[2017-10-07] MEDS: D5W 1,000 ML with NA BICARB 8.4% 100 MEQ IV SCH ×2 (05:34)
[2017-10-07 05:42] LABS: Hematocrit 35.5 % (36.0-45.0); MCH 31.2 pg (27.0-35.0); MCV 87.8 fL (80-100); RBC Red Blood Cell Count 4.05 M/uL (3.86-4.86)
[2017-10-07 05:43] LABS: Absolute Lymphocytes (CBC) 1.8 K/uL (0.7-4.9); Absolute Monocytes 0.6 K/uL (0.1-1.3); Absolute Neutrophil 7.7 K/uL (1.8-8.0); Basophils % 0.3 % (0-1.3); Eosinophils % 0.5 % (0-4.4); MPV 8.9 fL (7.6-11.3); Monocytes % 5.6 % (3.3-12.3)
[2017-10-07 06:04] LABS: ALT/SGPT 14 U/L (12-78); AST/SGOT 19 U/L (15-37); Albumin 3.8 g/dL (3.4-5.0); Alkaline Phosphatase 63 U/L (45-117); BUN Blood Urea Nitrogen 8 mg/dL (7-18); Bicarbonate 27 mmol/L (21-32); Bilirubin Total 0.6 mg/dL (0.2-1.0); Glucose Level 96 mg/dL (74-106); Magnesium 1.9 mg/dL (1.8-2.4); Phosphorus 3.6 mg/dL (2.5-4.9); Potassium 3.4 mmol/L (3.5-5.1); Protein, Total 6.5 g/dL (6.4-8.2); Sodium Level 141 mmol/L (136-145)
--- NOTE | 2017-10-07 06:31 | EKG ---
Test Date: 2017-10-06 Test Time: 14:16:24 Distribution Center Associate: NT MEASUREMENT RESULTS: Intervals: Rate: 87 TX: 132 QRSD: 82 QT: 542 QTc: 652 [place]: P: 67 TX: 132 QRS: 48 T: 33 INTERPRETIVE STATEMENTS: Normal sinus rhythm Nonspecific ST abnormality Prolonged QT Abnormal ECG Compared to ECG 10/05/2017 17:02:46 ST (T wave) deviation now present Prolonged QT interval now present Sinus tachycardia no longer present Electronically Signed On 10-07-17 06:30:17 CDT by Luis Stauffer
[2017-10-07] MEDS: KCL 20 MEQ/100 mL IVPB 20 MEQ/100 ML BAG IV SCH ×2 (07:16→09:21)
[2017-10-07] MEDS: PANTOPRAZOLE 40 MG INJ IVP SCH (08:10)
[2017-10-07] MEDS: ENOXAPARIN 40 MG/0.4 ML SQ SCH (08:10)
[2017-10-07] MEDS ORDERED: ONDANSETRON 4 MG/2 ML VIAL IV PRN ×2 (08:12→08:14)
[2017-10-07] MEDS: METOPROLOL TARTRATE 5 MG/5 ML INJ IV SCH ×2 (08:23→15:02)
--- NOTE | 2017-10-07 10:15 | P.CNS ---
Date of Consult: 10/07/17 Reason for Consult: Overdose Chief Complaint: Overdose History of Present Illness: Patient is 22 years of age admitted with significant overdose of Benadryl patient was intubated she has some EKG changes this morning she is alert responsive cooperative little tachycardic eyes guess is the anticholinergic effect patient was hypercapnic acidotic patient denies any history of depression or any previous suicidal attempts she took about 300 pills off Benadryl patient has a prolonged QT interval on the EKG troponins negative Allergies No Known Allergies Allergy (Unverified 07/10/12 19:12) Home Medications: NK [No Home Meds] 10/05/17 - Past Medical/Surgical History Diabetic: No -: bipolar d/o -: Sweat gland removal -: ectopic - Family History Mother Medical History: Hypertension Notes: Drandmother has Hypertension as well - Social History Smoking Status: Never smoker Alcohol use: No CD- Drugs: No Caffeine use: No Place of Residence: Home Physical Examination Temp Pulse Resp BP Pulse Ox 99.1 F 144 H 17 126/82 100 10/07/17 04:00 10/07/17 08:23 10/07/17 06:00 10/07/17 08:23 10/07/17 06:00 - Problems (1) Chlorpheniramine overdose of undetermined intent Current Visit: Yes Status: Acute Plan: Patient is 22 years of age admitted with an overdose Benadryl she took 300 pill no prior history of suicide she has been under significant stress recently due to job loss currently doing well plan to extubate Dc bicarbonate drip use beta- blockers p.r.n. for tachycardia on her initial intubation patient developed a complete atelectasis of the left lung due to right lung intubation is now been corrected at chest x-rays clear Qualifiers: Encounter type: initial encounter Qualified Code(s): T45.0X4A - Poisoning by antiallergic and antiemetic drugs, undetermined, initial encounter
[2017-10-07] MEDS: ACETAMINOPHEN 325 MG TABLET PO PRN ×2 (17:22→23:32)
[2017-10-07] MEDS ORDERED: METOPROLOL XL 50 MG TAB PO SCH (18:30)
[2017-10-07] MEDS ORDERED: KCL 20 MEQ/100 mL IVPB 20 MEQ/100 ML BAG IV SCH (19:00)
--- NOTE | 2017-10-07 19:25 | PN ---
Subjective: Currently, the patient lying in bed. She looks a little restless, mumbling, is able to answer question. Her mother at the bedside. She has continued to be tachycardic. She has no fever, no chills now, but she had earlier a temperature of 100.1. Review of Systems: Otherwise negative. Objective: Vital Signs: Blood pressure is 120/83, respiratory rate 23, heart rate 116, temperature 100.1. She is satting 100% on 2 L nasal cannula. She was extubated. General: She is alert and oriented, does not look in any distress, but she is very restless. HEENT: Atraumatic, normocephalic. PERRLA. Oral mucosa is moist. Neck: Supple. No JVD. No bruits. Chest: Clear to auscultation. Good air entry. Heart: Regular rate and rhythm. Tachy sinus. No gallop or murmur. Abdomen: Soft, nontender. No masses. No hepatosplenomegaly. Positive bowel sounds. Extremities: No clubbing, cyanosis, or edema. No calf tenderness. Neurologic: Good with normal muscle strength, normal reflexes and normal sensation. Laboratory Data: Labs today showed CBC within normal. Chemistry within normal except for potassium 3.4, calcium 7.9. LFTs within normal. Assessment And Plan: 1. Drug overdose with Benadryl, status post intubation for airway protection. The patient extubated currently and she is breathing well. 2. Seizure with Benadryl overdose, resolved now. Continue seizure precaution. The patient on p.r.n. Ativan. 3. Fever most likely secondary to cholinergic side effects of Benadryl. If she continue to have fever, we will proceed with culture to be on the safe side. No signs of aspiration on x-ray. The patient not on antibiotic. 4. Hypokalemia. We will replace 5. Overdose with suicidal attempt. The patient will need [facility] evaluation once she is medically stable. 6. Wide QRS complex on EKG, repeated EKG was back to normal. 7. Tachycardia, secondary to Benadryl overdose. She is on p.r.n. metoprolol. 8. Deep vein thrombosis prophylaxis. She is on Lovenox. BRIAN/BRANDIN Voice ID: [id number] Report ID: [id number] [id number]
[2017-10-07] MEDS: METOPROLOL XL 50 MG TAB PO SCH (20:12)
[2017-10-07] MEDS ORDERED: LORAZEPAM 0.5 MG TABLET PO ONE (23:45)
[2017-10-08] MEDS: METOPROLOL XL 50 MG TAB PO SCH ×2 (05:27→17:34)
[2017-10-08 05:32] LABS: BUN Blood Urea Nitrogen 7 mg/dL (7-18); Bicarbonate 26 mmol/L (21-32); Glucose Level 80 mg/dL (74-106); Magnesium 2.2 mg/dL (1.8-2.4); Phosphorus 3.7 mg/dL (2.5-4.9); Potassium 3.9 mmol/L (3.5-5.1); Sodium Level 140 mmol/L (136-145)
[2017-10-08] MEDS ORDERED: POTASSIUM 25 MEQ EFFERV TAB PO ONE (07:00)
[2017-10-08] MEDS: ENOXAPARIN 40 MG/0.4 ML SQ SCH (08:51)
--- NOTE | 2017-10-08 18:59 | PN ---
Date of Progress Note: 10/08/2017 Subjective: The patient is seen and examined. Chart reviewed and case discussed with RN. The patient awake and alert. Says that she was intentionally trying to hurt herself. She was under recent stressors. They understand that she needs go to an inpatient psychiatric facility for further evaluation and treatment. Review of Systems: Negative except as above. Medications: List reviewed. Physical Examination: Vital Signs: Temperature 99.5, heart rate 89, blood pressure 178/83, respirations 23, O2 100% on room air. General: Awake, alert, oriented x3. No acute distress. Cachectic female. BMI 16.9. CV: S1, S2. No murmurs. Respiratory: Moving air well bilaterally. No wheezing. Gastrointestinal: Abdomen is soft, nontender, nondistended. Positive bowel sounds. Extremities: No clubbing, cyanosis, or edema. Neurologic: Nonfocal. Psych: Mood is somewhat anxious. Affect is congruent with mood. Insight and judgment are poor. Laboratory Data: Sodium 140, potassium 3.9, chloride 107, CO2 26, BUN 7, creatinine 0.6, glucose 80, calcium 8.9, phosphorus 3.7, magnesium 2.2. WBC 10.2, platelets 170, neutrophils 75%. Blood culture not done. Urine culture shows no growth. Assessment And Plan: A 22-year-old female with: 1. Acute respiratory failure, now extubated, secondary to drug overdose. 2. Drug overdose with Benadryl. Doing well. Continue suicide precautions. 3. Seizure due to Benadryl overdose, resolved. We will continue seizure precautions and p.r.n. Ativan. No need to start on anticonvulsants. No further episodes. 4. Fever secondary to cholinergic side effects of Benadryl. No further fevers. Afebrile since midnight of 100.2. No signs of infection. UA is negative. Chest x-ray did not show any acute infiltrates. 5. Hypokalemia, replaced. We will continue to monitor. 6. Overdose with suicide attempt. The patient has been evaluated by [facility]. We will need inpatient referral. 7. Arrhythmia. The patient has wide QRS complex, ABG is now normalized, secondary to effects of Benadryl. 8. Tachycardia, resolved. 9. Gastrointestinal and deep venous thrombosis prophylaxis with PPI and Lovenox. Plan: Advance diet as tolerated, continue suicide precautions one-on-one, seizure precautions, and refer to inpatient psychiatric facility, discharge once accepted, and medically cleared. /BRANDIN Voice ID: [id number] Report ID: [id number] MTDBarry
[2017-10-08] MEDS: PHENOL 1.4% ORAL SPRAY 180ML MM PRN (20:23)
[2017-10-09] MEDS ORDERED: LORazepam 2 MG/ML VIAL IV STA (03:20)
[2017-10-09] MEDS: PHENOL 1.4% ORAL SPRAY 180ML MM PRN ×3 (04:16→20:58)
[2017-10-09] MEDS: METOPROLOL XL 50 MG TAB PO SCH ×2 (05:17→18:00)
[2017-10-09] MEDS: ENOXAPARIN 40 MG/0.4 ML SQ SCH (09:04)
--- NOTE | 2017-10-09 13:26 | PN ---
Date of Progress Note: 10/09/2017 Subjective: The patient seen and examined, chart reviewed and case discussed with RN. The patient a ttempted to leave yesterday from the ICU, however, seal delivery vehicle officer was called, and the patient had emergency fci signed for 72 hours. The patient this morning is cooperative. She understands t hat she needs help. Review of Systems: Negative except as above. Medications: List reviewed. Objective: Vital Signs: Temperature 98, heart rate 90, blood pressure 101/61, respirations 18, O2 9 8% on room air. General: Awake, alert, oriented x3, not in any acute distress. Cachectic. BMI 16. CV: S1, S2. No murmurs. Sinus tachycardia. Peripheral pulses present. No murmurs. Respiratory: Moving air well bilaterally. No wheezing. Gastrointestinal: Abdomen is soft, nontender, nondistended. Positive bowel sounds. Extremities: No clubbing, cyanosis, edema. Neurologic: Nonfocal. Psych: mood is okay. Affect is full. Insight and judgment are poor. Laboratory Data: Sodium 140, potassium 3.9, chloride 107, CO2 26, BUN 7, creatinine 0.6, glucose 80, calcium 8.9, phosphorus 3.7, magnesium 2.2. Assessment: A 22-year-old female with: 1.Acute respiratory failure, now extubated, doing well on room air, secondary to drug overdose. 2.Drug overdose with Benadryl. No further side effects. No arrhythmias. 3.Seizure secondary to Benadryl overdose, resolved. We will continue seizure precautions. Use Ativ an p.r.n. Anticonvulsives not indicated. 4.Fever secondary to cholinergic side-effects of Benadryl. The patient now afebrile. 5.Hypokalemia, replaced. We will continue to monitor. 6.Overdose with suicide attempt. The patient has been referred to inpatient psychiatric facility as an emergency fci. 7.Arrhythmia and wide-complex QRS secondary to overdose, resolved. 8.Tachycardia, improving. 9.Gastrointestinal and deep venous thrombosis prophylaxis with PPI and Lovenox. Plan: Continue suicide precautions with 1 on 1 transfer to inpatient psychiatric facility once accep arieGisela CARD/BRANDIN Voice ID: [id number] Report ID: [id number]
[2017-10-10] MEDS: METOPROLOL XL 50 MG TAB PO SCH ×2 (06:28→18:05)
[2017-10-10] MEDS: ENOXAPARIN 40 MG/0.4 ML SQ SCH (09:01)
--- NOTE | 2017-10-10 12:55 | PN ---
Date of Progress Note: 10/10/2017 Subjective: The patient seen, examined, chart reviewed, and case discussed with RN. The patient do not have any complaints. Doing well. Otherwise, no arrhythmias overnight. The patient does not hav e any complaints. Review of Systems: Negative except as above. Medications: List reviewed. Objective: Vital Signs: Temperature 97.9, heart rate 83, blood pressure 103/70, respirations 18, O2 99% on room air. General: Awake, alert, oriented x3. No acute distress. CV: S1, S2. No murmurs. Regular rate and rhythm. Peripheral pulses present. Respiratory: Moving air well bilaterally. No wheezing. No stridor. No use of accessory muscles. Gastrointestinal: Abdomen is soft, nontender, nondistended. Positive bowel sounds. Extremities: No clubbing, cyanosis, edema. Neurologic: Nonfocal. Psych: Mood is somewhat depressed. Affect is flat. Insight and judgment are poor. Assessment: A 22-year-old female with: 1.Acute respiratory failure, resolved, doing well on room air, secondary to drug overdose. 2.Drug overdose with Benadryl, intentional. No further side effects. 3.Seizure secondary to above, resolved. We will continue seizure precautions. Ativan p.r.n. 4.Fever secondary to cholinergic side effects of Benadryl. Currently afebrile. 5.Hypokalemia, replace. 6.Overdose with suicide attempt. The patient has been referred to inpatient psychiatric facility. Currently has a care home warrant. 7.Arrhythmia with wide-complex QRS secondary to overdose, resolved. 8.Gastrointestinal and deep venous thrombosis prophylaxis with PPI and SCDs. The patient is ambulat ory within the room. Plan: Discharge to inpatient psychiatric facility once the bed is available. We will continue with 1 on 1 sitter. /BRANDIN Voice ID: [id number] Report ID: [id number]
[2017-10-11] MEDS: METOPROLOL XL 50 MG TAB PO SCH (06:00)
[2017-10-11] MEDS: ENOXAPARIN 40 MG/0.4 ML SQ SCH (08:47)
--- NOTE | 2017-10-11 19:10 | PN ---
Date of Progress Note: 10/11/2017 Subjective: The patient seen and examined. Chart reviewed and case discussed with RN. The patient had an uneventful night asking when her penitentiary expires, which will be today. Review of Systems: Negative except as above. Medications: List reviewed. Physical Examination: Vital Signs: Temperature 98.1, heart rate 79, blood pressure 91/52, respirations 16, O2 98% on room air. General: Awake, alert, oriented x3. Not in any acute distress. CV: S1, S2. No murmurs. Regular rate and rhythm. Peripheral pulses present. Respiratory: Moving air well bilaterally. Gastrointestinal: Abdomen is soft, nontender, nondistended. Positive bowel sounds. Extremities: No clubbing, cyanosis, edema. Neurologic: Nonfocal. Psych: Mood is okay. Affect is full. Insight and judgment are fair. Assessment: A 22-year-old female with: 1.Acute respiratory failure, resolved. 2.Drug overdose with Benadryl, intentional. No further side effects. 3.Overdose with suicide attempt. The patient has been referred to inpatient psychiatric facility. Awaiting bed placement at [facility]. [facility] was called today as her penitentiary will tod and they agree with inpatient referral due to the nature of her overdose. The patient at this [facility] states that she is not actively suicidal; however, we will benefit from further treatment and evalu ation at the inpatient psychiatric facility. 4.Acute seizure secondary to drug overdose, resolved. No further seizure episodes. 5.Fever, secondary to cholinergic side effects of Benadryl. No further febrile episodes. 6.Hypokalemia, replaced. 7.Arrhythmia, resolved. We will continue to monitor on telemetry. 8.Gastrointestinal and deep venous thrombosis prophylaxis with PPI and Lovenox. Plan: Discharge the patient to inpatient psychiatric facility once bed available. /BRANDIN Voice ID: [id number] Report ID: [id number]
[2017-10-11 20:11] VITALS: O2SAT 100
[2017-10-12 06:01] LABS: BUN Blood Urea Nitrogen 12 mg/dL (7-18); Bicarbonate 27 mmol/L (21-32); Glucose Level 95 mg/dL (74-106); Sodium Level 137 mmol/L (136-145)
[2017-10-12 06:19] VITALS: TEMP 98.9
[2017-10-12 07:14] VITALS: BMI 16.6
[2017-10-12] MEDS: ENOXAPARIN 40 MG/0.4 ML SQ SCH (08:48)
[2017-10-12 11:13] VITALS: BP 89/77
--- NOTE | 2017-10-13 07:50 | DS ---
Date of Discharge: 10/12/2017 Consultants: Dr. Plata with Pulmonology. Admitting Diagnoses: 1. Acute respiratory failure secondary to overdose. 2. Benadryl overdose. 3. Seizure. 4. Intentional overdose, suicide intention. 5. Metabolic acidosis. Discharge Diagnoses: 1. Acute respiratory failure, resolved. 2. Drug overdose of Benadryl, intentional. 3. Overdose with suicide attempt. The patient's voluntary longterm . Was unable to be placed in the psychiatric facility. The patient left against medical advice. 4. Acute seizure secondary to drug overdose, resolved. 5. Fever secondary to at cholinergic side effects, resolved. 6. Hypokalemia, replaced. 7. Arrhythmia. Hospital Course: The patient is a 22-year-old female comes in with drowsiness, agitation, hallucinations secondary to Benadryl overdose. The patient took approximately 360 pills of Benadryl 25 mg each. The patient was trying to hurt herself as she states that she had lost her job, was frustrated, had a lot of stressors in her life. The patient had a seizure episode. While in the ER, became hypoxic and had to be intubated. The patient was acidotic. The patient received bicarb. She was placed on mechanical ventilation via ET tube. She was seen by Pulmonology, Dr. Plata. She was able to be extubated the following day. The patient did have cholinergic side effects from the overdose including seizure. She also had arrhythmias, wide-complex QRS arrhythmias, as well as tachycardia hallucinations. The patient was continued on bicarb drip. The patient's condition improved gradually. She did have some electrolyte abnormalities, which were corrected. The patient's blood culture and urine culture were negative. The patient was alert and oriented after the side effects resolved. She did state that she had intended to harm herself and therefore, the patient was referred to inpatient psychiatric facility at [facility] and [facility]. The patient was evaluated by [facility] and they agreed with assessment of inpatient psychiatric referral. The patient did have the longterm warrant placed as she wanted to leave, however, was not considered stable. The patient was accepted by both [facility] and [facility], however, no beds became available. The patient then was re-evaluated by [facility] and outpatient appointment was set up on Sunday. The patient's emergency warrant . She did state that she was no longer suicidal. She did not wish to harm herself. She did not wish to have a repeat episode such as this, and therefore signed out against medical advice. We encouraged her to stay in the hospital as the bed was to become available shortly according to [facility]. Perhaps later this evening, the patient declined and left against medical advice. training systems officer was notified that the patient is leaving against medical advice. Physical Examination: General: Awake, alert, oriented x3. No acute distress. CV: S1, S2. No murmurs. Respiratory: Moving air well bilaterally. No wheezing. Abdomen: Soft, nontender, nondistended. Positive bowel sounds. Extremities: No clubbing, cyanosis, or edema. Neurologic: Nonfocal. Psych: Mood is okay. Affect is full. Insight and judgment are fair. /BRANDIN Voice ID: [id number] Report ID: [id number] [facility]
== END 2017-10-12 11:17 | disposition left against medical advice (07) | DRG 917 ==
LOC: ER 15:33 → ERHOLD 18:37 → 3RD-ICU 19:14
PROVIDERS: ADMIT Family Medicine; ATTEND Family Medicine
PROC: 0BH17EZ Insertion of Endotracheal Airway into Trachea, Via Natural or Artificial Opening (ICD-10-PCS; principal; 2017-10-05)
PROC: 5A1945Z Respiratory Ventilation, 24-96 Consecutive Hours (ICD-10-PCS; 2017-10-05)
DX: T45.0X2A Poisoning by antiallergic and antiemetic drugs, intentional self-harm, initial encounter (principal); J96.00 Acute respiratory failure, unspecified whether with hypoxia or hypercapnia; E87.2 Acidosis; Y92.009 Unspecified place in unspecified non-institutional (private) residence as the place of occurrence of the external cause; R56.9 Unspecified convulsions; R50.2 Drug induced fever; E87.6 Hypokalemia; I49.9 Cardiac arrhythmia, unspecified; R00.0 Tachycardia, unspecified; F31.9 Bipolar disorder, unspecified
CPT/HCPCS: 31500; 36415; 51702; 71045; 80048; 80053; 80076; 80307; 80320; 80329; 81003; 81025; 82805; 82962; 83735; 84100; 84132; 84484; 85025; 85610; 85730; 87040; 87086; 87088; 93005; 94002; 94003; 99291; 99292; C9113; J0330; J1650; J1953; J2405; J3475; J7030